=== PATIENT | female | born 1990 | race Native Hawaiian/Other Pacific Islander ===

== ENCOUNTER 2016-10-19 20:24 | Emergency (ER) | payer SELFPAY ==
[2016-10-19 20:39] VITALS: PULSE 62; RESP 16; TEMP 98.2; O2SAT 100
[2016-10-19] MEDS ORDERED: Fluorescein 1 mg Ophthalmic Strip OD ONE (21:11)
[2016-10-19] MEDS ORDERED: Fluorescein 1 mg Ophthalmic Strip ONE (21:15)
[2016-10-19 21:21] VITALS: BP 124/84
--- NOTE | 2016-10-19 21:29 | C.PDOC ---
History Of Present Illness 26 year old female who presents to the ER with a complaint of right eye irritation after she believes dust flew into her eye. Denies eye pain or change in vision. Time Seen by Provider: 10/19/16 20:55 Chief Complaint (Nursing): Eye Problem History Per: Patient History/Exam Limitations: no limitations Onset/Duration Of Symptoms: Hrs Current Symptoms Are (Timing): Still Present Injury To Eye?: No Wears Contact Lens?: No Associated Symptoms: Other (irritation). denies: Pain, Decreased Vision, Discharge From Eye Recent travel outside of the [place]: No Past Medical History Reviewed: Historical Data, Nursing Documentation, Vital Signs Vital Signs: Last Vital Signs Temp 98.2 F 10/19/16 20:36 Pulse 62 10/19/16 20:36 Resp 16 10/19/16 20:36 BP 124/84 10/19/16 20:36 Pulse Ox 100 10/19/16 21:45 - Medical History PMH: No Chronic Diseases Surgical History: No Surg Hx Family History: States: Unknown Family Hx - Social History Hx Alcohol Use: No Hx Substance Use: No Review Of Systems Eyes: Positive for: Other (Irritation). Negative for: Pain, Vision Change Physical Exam - Physical Exam Appears: Non-toxic, No Acute Distress Skin: Normal Color, Warm, Dry Head: Atraumatic, Normacephalic Eye(s): bilateral: PERRL, EOMI, Other (Erythema, no foreign body visualized) Nose: Normal Oral Mucosa: Moist Neck: Normal ROM, Supple Chest: Symmetrical Respiratory: No Accessory Muscle Use Extremity: Normal ROM Extremity: Bilateral: Atraumatic Neurological/Psych: Oriented x3, Normal Speech, Normal Cognition ED Course And Treatment O2 Sat by Pulse Oximetry: 100 (Room air) Pulse Ox Interpretation: Normal Progress Note: Fluorescein applied to eye with no uptake. Eye irrigated with sterile saline, patient reports relief after irrigation. 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 Disposition - Disposition Referrals: Franc Nguyen MD [Staff Provider] - Disposition: HOME/ ROUTINE Disposition Time: 21:42 Condition: STABLE Additional Instructions: Follow up with eye doctor in 1-3 days without fail for further evaluation. Take medications as prescribed. Return to the emergency department at any time if symptoms persist or worsen. Prescriptions: Tobramycin 0.3% [Tobramycin 5 Ml] 1 drop OP Q4 #1 bottle Instructions: Eye Pain (ED) Forms: [facility] (Bhutanese) - Clinical Impression Clinical Impression: Eye irritation - Scribe Statement The provider has reviewed the documentation as recorded by the Scribe Jaison Henriquez All medical record entries made by the Scribe were at my direction and personally dictated by me. I have reviewed the chart and agree that the record accurately reflects my personal performance of the history, physical exam, medical decision making, and the department course for this patient. I have also personally directed, reviewed, and agree with the discharge instructions and disposition.
== END 2016-10-19 21:55 | disposition home or self-care (01) ==
LOC: C.ER 20:24
DX: H57.8 Other specified disorders of eye and adnexa (principal)